=== PATIENT | male | born 1955 | race Caucasian/White ===

== ENCOUNTER 2017-07-31 00:14 | Inpatient (IN) | payer SELFPAY ==
[2017-07-31] MEDS ORDERED: Azithromycin 500 MG VIAL ONE (02:48)
[2017-07-31] MEDS ORDERED: methylPREDNISolone Sod Succ/PF 125 MG/2 ML VIAL ONE (02:48)
[2017-07-31] MEDS ORDERED: Lorazepam 2 MG/ML VIAL ONE (04:08)
[2017-07-31] MEDS ORDERED: Lorazepam 2 MG/ML VIAL SLOW IVP PRN (07:32)
[2017-07-31 07:56] VITALS: BMI 23.4
--- NOTE | 2017-07-31 08:05 | RAD ---
UPRIGHT PORTABLE CHEST 1 VIEW: HISTORY: A 61-year-old male with cough and dyspnea. History of COPD and emphysema. COMPARISON: 07/01/17. FINDINGS: Monitor leads overlie the chest. Bilateral hyperinflation and chronic changes with some biapical ple ural thickening. No confluent pneumonia, overt edema, or pleural effusion. IMPRESSION: Hyperinflation and chronic lung changes, stable. No acute process. POS: YOHANNSE
[2017-07-31] MEDS ORDERED: methylPREDNISolone Sod Succ/PF 125 MG/2 ML VIAL IVP SCH (09:00)
[2017-07-31] MEDS ORDERED: hydrALAZINE 20 MG/ML VIAL SLOW IVP PRN (12:32)
[2017-07-31] MEDS ORDERED: Ondansetron HCl/PF 4 MG/2 ML Vial IVP PRN (12:32)
[2017-07-31] MEDS ORDERED: Ondansetron ODT 4 MG TAB PO PRN (12:32)
[2017-07-31] MEDS ORDERED: Acetaminophen 500 MG TAB PO PRN (12:32)
[2017-07-31] MEDS ORDERED: cloNIDine 0.1 MG TAB PO PRN (12:32)
[2017-07-31] MEDS: Lorazepam 2 MG/ML VIAL SLOW IVP SCH ×3 (13:20→21:00)
[2017-07-31] MEDS: Nicotine 21 MG PATCH TD SCH (13:20)
[2017-07-31] MEDS: Sodium Chloride 0.9% 1,000 ML IV SCH (13:20)
--- NOTE | 2017-07-31 13:28 | HP ---
DATE OF ADMISSION: 07/31/2017 PRIMARY CARE PROVIDER: Isael Dumont. CHIEF COMPLAINT: Alcohol abuse. HISTORY OF PRESENT ILLNESS: This is a 61-year-old male who presented to [facility] with acute alcohol intoxication. The patient was transferred from [facility] ency Department after EMS personnel arrived to find patient at his home apparently with increased anx iety, acute alcohol intoxication and questionable suicidal ideation. Patient had reportedly spoken t o the EMS dispatcher regarding a loaded weapon in his house. Apparently, patient was found with a lo aded hand gun when EMS arrived to his home. The patient admits to a recent breakup after a 7-year re lationship causing increased anxiety and depression. The patient states he began drinking within the last 24 hours and had a fifth of rum completed by the time he arrived to the emergency room. The namita joan admits to a longstanding history of alcohol abuse, treated in a facility in [place] in 2016. The patient states he was treated for approximately 28 days, released back home and subsequently went josé miguel k to drinking alcohol. The patient admits to difficulty with anxiety over many years, self treating with heavy alcohol use. The patient admits to some tremulousness and falling and striking his head i n the last several weeks, but is unsure if he has ever had alcohol withdrawal seizure. The patient d enies any chronic medication use or exposure history. Patient denies specific fever, chills, blood i n the stool or vomiting. In the emergency room, the patient underwent general evaluation with an ini tial alcohol level noted at 387 on 07/30/2017. The patient was initiated on Ativan, DuoNebs, Zithrom ax, Solu-Medrol, Rocephin and intravenous normal saline. Initial concern was for additional COPD exa cerbation; however, patient denies any specific increased shortness of breath currently. PAST MEDICAL HISTORY: 1. Alcohol abuse. 2. Chronic alcoholism. 3. Tobacco abuse. 4. Anxiety disorder, untreated. 5. Question of chronic obstructive pulmonary disease without treatment. PAST SURGICAL HISTORY: Status post right inguinal hernia repair x2. CURRENT MEDICATIONS: Multivitamin. FAMILY HISTORY: Positive for multiple family members with anxiety. SOCIAL HISTORY: The patient resides in [facility]. The patient drinks alcohol up to 10 drin ks per day including a pint of whiskey. Smokes up to a pack and a half of cigarettes daily. Formerl y used cocaine and marijuana, none currently. ALLERGIES: Augmentin. REVIEW OF SYSTEMS: The following complete review of systems was negative, unless otherwise mentioned in the HPI or below: Constitutional: Weight loss or gain, ability to conduct usual activities. Sk in: Rash, itching. Eyes: Double vision, pain. ENT/Mouth: Nose bleeding, neck stiffness, pain, te nderness. Cardiovascular: Palpitations, dyspnea on exertion, orthopnea. Respiratory: Shortness of breath, wheezing, cough, hemoptysis, fever or night sweats. Gastrointestinal: Poor appetite, abdom inal pain, heartburn, nausea, vomiting, constipation, or diarrhea. Genitourinary: Urgency, frequenc y, dysuria, nocturia. Musculoskeletal: Pain, swelling. Neurologic/Psychiatric: Anxiety, depressio n. Allergy/Immunologic: Skin rash, bleeding tendency. Otherwise negative except as stated per HPI. PHYSICAL EXAMINATION: VITAL SIGNS: Currently, blood pressure 131/69, pulse 60, respiratory rate 18, temperature 98.8 degre es Fahrenheit, O2 saturation 94% on room air. GENERAL APPEARANCE: This is a 61-year-old male, anxious appearing, alert, responsive, in m ild distress. HEENT: Pupils are equal, round, and reactive to light and accommodation. Extraocular muscles are in tact. No scleral icterus, no conjunctival injection. Nares patent. OP is clear. Teeth in fair rep air. NECK: Supple, no cervical adenopathy, no thyromegaly, no carotid bruits, no JVD appreciated. Cervic al spine with full active and passive range of motion. No meningeal signs appreciated. CHEST: Diminished breath sounds in the bases bilaterally. Occasional coarse breath sounds noted. CARDIOVASCULAR: S1, S2, without noted murmur. ABDOMEN: Flat, soft, nontender, nondistended. Bowel sounds are positive in all four quadrants. The re is no hepatosplenomegaly, no abdominal bruits, no rebound or guarding appreciated. No palpable ma ss. EXTREMITIES: Warm and dry with fair turgor. No asymmetric edema appreciated. Pulses palpable dista lly at the dorsalis pedis, posterior tibial, and popliteal arteries bilaterally. Capillary refill le ss than 2 seconds. NEUROLOGIC: Positive intention tremor. Cranial nerves II-XII are grossly intact. Alert and oriente d x3. No other focal or lateralizing signs appreciated. PERTINENT LABORATORY DATA AND X-RAY FINDINGS: Sodium 141, potassium 4.2, chloride 100, CO2 of 20, BU N 15, creatinine 0.93, estimated GFR of 82, glucose 107, calcium 9.1, magnesium 2.0, AST 155, ALT 112 , total bilirubin 0.7, alkaline phosphatase 104. Total CK of 302, albumin 4.8, lipase 44, TSH 1.03. CBC showed a white blood cell count of 6.1, hemoglobin 15.6, hematocrit 45.2, MCV 103, platelet count 90 with 52% neutrophils. Urine drug screen dated 07/30/2017 positive for benzodiazepines and cannab inoids. Plasma alcohol level 387 on 07/30/2017. Portable chest x-ray dated 07/31/2017 showed hyperi nflation and chronic changes consistent with tobacco use. EKG dated 07/31/2017 by my interpretation shows sinus mechanism with heart rates in the 80s. Attenuated R waves noted in the precordial leads. Normal axis. No acute ST-T wave changes appreciated. ASSESSMENT AND PLAN: 1. Acute alcohol intoxication. We will admit to the telemetry unit. Continue Ativan 2 mg IV q.4 h scheduled. Continue alcohol withdrawal precautions. Banana bag at 125 mL per hour q.24 hours. We w ill consult [facility] and case management for alcohol cessation programs after discharge. 2. Question of suicidal ideation. No current plans for suicidal or homicidal ideation currently. T he patient with heightened anxiety and alcohol abuse as stated previously. We will consult [facility] when medically stabilized. A sitter for one-on-one observation. 3. Transaminitis secondary to alcohol abuse. Repeat LFTs in the a.m. No current evidence of obstru ctive process. 4. Thrombocytopenia secondary to chronic alcoholism. No evidence to suggest acute blood loss. Repe at platelet count in the a.m. 5. Tobacco abuse. Nicotine patch 21 mg daily. 6. Cannabis abuse. Continue supportive measures. 7. Prophylaxis. Sequential compression devices while in bed. Pepcid 20 mg p.o. b.i.d. MR consul t when medically stabilized. 8. CODE STATUS IS FULL. Surrogate medical decision maker is patient's brother.
[2017-07-31] MEDS: Multivitamins, Adult 10 ML, Folic Acid 1 MG, Thiamine HCl 100 MG in Dextrose 5 %-0.45 %... IV SCH ×4 (16:45)
[2017-07-31] MEDS: Famotidine 20 MG TAB PO SCH (21:54)
[2017-08-01] MEDS: Lorazepam 2 MG/ML VIAL SLOW IVP SCH ×6 (00:48→20:17)
[2017-08-01] MEDS: Sodium Chloride 0.9% 1,000 ML IV SCH ×4 (00:59→21:55)
[2017-08-01 05:48] LABS: Band 1 % (5-11); Hematocrit 35.7 % (42.0-52.0); Mean Platelet Volume 8.6 fL (7.4-10.4); Neutrophil 60 % (42-75); Reactive Lymphocytes 1 % (0-10); Red Blood Cell (RBC) Count 3.32 mill/uL (4.70-6.10)
[2017-08-01 06:04] LABS: ALT (SGPT) 83 U/L (8-55); AST (SGOT) 94 U/L (5-34); Alkaline Phosphatase 71 U/L (40-150); Anion Gap 12 mmol/L (10-20); BUN (Urea Nitrogen) 12 mg/dL (8.4-25.7); Bilirubin, Total 1.3 mg/dL (0.2-1.2); Calc. Creatinine Clearance 100 mL/min (70-130); Calcium 9.5 mg/dL (7.8-10.44); Carbon Dioxide 24 mmol/L (23-31); Chloride 103 mmol/L (98-107); Estimated GFR-MDRD Greater than 90; Globulin 2.8 g/dL (2.4-3.5); Protein, Total 6.8 g/dL (5.8-8.1)
[2017-08-01] MEDS: Famotidine 20 MG TAB PO SCH ×2 (08:10→20:17)
[2017-08-01] MEDS: Nicotine 21 MG PATCH TD SCH (13:45)
[2017-08-01] MEDS: Multivitamins, Adult 10 ML, Folic Acid 1 MG, Thiamine HCl 100 MG in Dextrose 5 %-0.45 %... IV SCH ×4 (13:45)
--- NOTE | 2017-08-01 13:58 | PDOC.PN ---
- Subjective Encounter Start Date: 08/01/17 Encounter Start Time: 13:50 Subjective: Feeling better overall. No withdrawal seizures. Appetite good. Wants to -: smoke. - Objective Resuscitation Status: Resuscitation Status FULL:Full Resuscitation MAR Reviewed: Yes Vital Signs & Weight: Vital Signs (12 hours) Temp Pulse Resp BP BP Pulse Ox 08/01/17 12:00 97.5 F L 61 16 116/56 L 116/56 L 96 08/01/17 08:00 97.7 F 76 18 97 08/01/17 07:33 97.7 F 76 18 124/75 124/75 97 08/01/17 04:00 97.6 F 54 L 20 116/60 97 Weight Weight 154 lb I&O: 07/31/17 08/01/17 08/02/17 06:59 06:59 06:59 Intake Total 1720 Output Total 450 Balance 1270 Result Diagrams: 08/01/17 05:05 08/01/17 05:05 Additional Labs: Laboratory Tests 07/30/17 07/30/17 08/01/17 17:45 17:45 05:05 Hgb 15.6 Plt Count 90 L AST 155 H 94 H ALT 112 H 83 H EKG Reviewed by me: Yes (Tele - Sinus jasvir) Phys Exam - Physical Examination Constitutional: NAD HEENT: PERRLA, oral pharynx no lesions Neck: no JVD, supple Respiratory: no wheezing, clear to auscultation bilateral Cardiovascular: RRR Gastrointestinal: soft, non-tender, no distention, positive bowel sounds Musculoskeletal: no edema, pulses present Neurological: normal sensation, moves all 4 limbs Psychiatric: A&O x 3 Skin: normal turgor, cap refill <2 seconds Dx/Plan (1) Acute alcohol intoxication Code(s): F10.929 - ALCOHOL USE, UNSPECIFIED WITH INTOXICATION, UNSPECIFIED Status: Acute Comment: Continue Ativan 2mg IV q4h prn, Banana bag daily (2) Suicidal ideation Code(s): R45.851 - SUICIDAL IDEATIONS Status: Acute Comment: Consult [facility] for detox/rehab options, sitter 1:1 (3) Transaminitis Code(s): R74.0 - NONSPEC ELEV OF LEVELS OF TRANSAMNS & LACTIC ACID DEHYDRGNSE Status: Chronic Comment: Improved, chronic (4) Thrombocytopenia Code(s): D69.6 - THROMBOCYTOPENIA, UNSPECIFIED Status: Acute Comment: Watch general trend, likely ETOH-induced marrow suppression, no evidence of active bleeding. (5) Tobacco abuse Code(s): Z72.0 - TOBACCO USE Status: Chronic Comment: Nicotine patch - Plan plan discussed w/ family, social science teacher, out of bed/ambulate, DVT proph w/SCDs Stable overall -: Sitter for 1:1 -: [facility] consult for dispo options -: Continue Ativan and Banana bag -: AM lab: CMP, CBC * Spoke with pt's brother, Chato Sanabria, discussed severity of current situation and confirmed suicidal ideation which led to admit. Family in agreement * for pursuing detox/rehab options preferably in the [place] area. Consult [facility] for options and safety plan for d/c.
[2017-08-01 15:03] LABS: Anion Gap 16 mmol/L (-14-95); Critical Call POC Critical Value; Lactate 6.06 mmol/L (0.50-2.20); POC Est. GFR-MDRD-African-Amer Greater than 60; POC Estimated GFR-MDRD Greater than 60; T. Carbon Dioxide 20.7 mmol/L (1.0-85.0); pH (Venous) 7.443 (7.35-7.45); vO2 Saturation-calc 96.8 % (0.0-100.0)
[2017-08-02] MEDS: Lorazepam 2 MG/ML VIAL SLOW IVP SCH ×4 (02:39→13:22)
[2017-08-02] MEDS: Sodium Chloride 0.9% 1,000 ML IV SCH ×2 (04:56→13:21)
[2017-08-02 06:08] LABS: ALT (SGPT) 138 U/L (8-55); AST (SGOT) 157 U/L (5-34); Alkaline Phosphatase 69 U/L (40-150); Anion Gap 11 mmol/L (10-20); BUN (Urea Nitrogen) 15 mg/dL (8.4-25.7); Bilirubin, Total 1.3 mg/dL (0.2-1.2); Calc. Creatinine Clearance 100 mL/min (70-130); Calcium 9.1 mg/dL (7.8-10.44); Carbon Dioxide 24 mmol/L (23-31); Chloride 104 mmol/L (98-107); Estimated GFR-MDRD Greater than 90; Globulin 2.7 g/dL (2.4-3.5); Protein, Total 6.6 g/dL (5.8-8.1)
[2017-08-02 06:11] LABS: Band 3 % (5-11); Hematocrit 37.9 % (42.0-52.0); Mean Platelet Volume 9.1 fL (7.4-10.4); Neutrophil 49 % (42-75); Red Blood Cell (RBC) Count 3.51 mill/uL (4.70-6.10); White Blood Cell (WBC) Count 6.9 thou/uL (4.8-10.8)
[2017-08-02] MEDS: Famotidine 20 MG TAB PO SCH (10:32)
--- NOTE | 2017-08-02 12:56 | DIS ---
DATE OF ADMISSION: 07/31/2017 DATE OF DISCHARGE: 08/02/2017 DISCHARGE DIAGNOSES: 1. Acute alcohol intoxication, resolving. 2. Chronic alcoholism. 3. Polysubstance abuse with tobacco and THC. 4. Anxiety disorder. 5. Suicidal ideation. 6. Transaminitis secondary to alcohol abuse. 7. Thrombocytopenia secondary to alcohol abuse. 8. Chronic macrocytic anemia. CONSULTATIONS: [facility]. PERTINENT LABORATORY DATA AND X-RAY FINDINGS: AST ranged between 94-157, ALT ranged between 83-138, and total bilirubin 1.3. CBC showed hemoglobin ranging between 12.0-12.7, MCV 108. Urine drug scree n dated 07/30/2017 positive for benzodiazepines and cannabinoids. Plasma alcohol level 387. Portabl e chest x-ray dated 07/31/2017 showed no acute cardiopulmonary process. Hyperinflation and chronic c hanges noted. HOSPITAL COURSE: Patient was admitted to the telemetry unit after initially presenting with acute al cohol intoxication in conjunction with suicidal ideation. The patient was placed on one-to-one obser vation and given general alcohol treatment protocol including IV fluids, banana bag and scheduled Ati van. The patient exhibited no evidence of seizure activity and overall remained clinically stable. The patient was evaluated by the [facility] Service due to suicidal ideation and deemed an appropriate cand idate for acute inpatient psychiatric care. The patient has been approved and we will transfer to [facility] in [place], [place] on 08/02/2017. The patient will also need additional long -term treatment and support coordinated with family members after discharge from acute inpatient [facility]. Overall, patient is clinically stable, tolerating regular oral intake, ambulatory without ass istance or difficulty and ready for discharge on 08/02/2017. DISCHARGE MEDICATION: Multivitamin 1 tablet p.o. daily. FOLLOWUP: Patient will follow up at [facility] at [place], [place]. CONDITION ON DISCHARGE: Fair. ACTIVITY: Ad flavia. DIET: Heart healthy. CODE STATUS: FULL. DISPOSITION: Discharge to [facility] in [place], [place] on 08/02/2017.
[2017-08-02] MEDS: Multivitamins, Adult 10 ML, Folic Acid 1 MG, Thiamine HCl 100 MG in Dextrose 5 %-0.45 %... IV SCH ×4 (13:21)
[2017-08-02 16:08] VITALS: TEMP 97.1
[2017-08-02 21:20] VITALS: BP 130/78
== END 2017-08-02 16:09 | DRG 897 ==
LOC: ERS 00:14 → 2NO 03:40
PROVIDERS: ADMIT Internal Medicine; ATTEND Internal Medicine
DX: F10.129 Alcohol abuse with intoxication, unspecified (principal); R45.851 Suicidal ideations; D69.6 Thrombocytopenia, unspecified; Y90.8 Blood alcohol level of 240 mg/100 ml or more; F17.210 Nicotine dependence, cigarettes, uncomplicated; F12.10 Cannabis abuse, uncomplicated; F41.9 Anxiety disorder, unspecified; D53.9 Nutritional anemia, unspecified
CPT/HCPCS: 36415; 71010; 80053; 82330; 82803; 83605; 85007; 85027; 93005; 94640; 96361; 96365; 96366; 96375; A4216; J0456; J0696; J2060; J2405; J2930; J3411; J7042; J7620

== ENCOUNTER 2018-01-31 09:57 | Inpatient (IN) | payer SELFPAY ==
[2018-01-31] MEDS ORDERED: Lorazepam 2 MG/ML VIAL ONE (10:18)
--- NOTE | 2018-01-31 11:11 | RAD ---
CHEST 1 VIEW: Date: 01/31/18 HISTORY: Chest tube placement. Pneumothorax. Follow-up. COMPARISON: Earlier exam same date. FINDINGS: Cardiac silhouette magnified by projection. Pulmonary vasculature unremarkable. Mediastinum midline w ith aortic calcification. Right thoracostomy tube remains in place with minimal residual right apical pneumothorax. IMPRESSION: Small right apical pneumothorax and other findings are stable. POS: YOHANNES
--- NOTE | 2018-01-31 11:18 | CT ---
CT BRAIN WITHOUT CONTRAST: Date: 01/31/18 HISTORY: Altered mental status. FINDINGS: Comparison made with exam of 06/13/17. No evidence of acute infarct, hemorrhage, midline shift, or abnormal extra-axial fluid collections ar e seen. The bony calvarium is intact. There is fluid in the right maxillary sinus and a mucus retenti on cyst versus polyp in the left maxillary sinus. Ventricular size is stable and the basilar cisterns are patent. IMPRESSION: No CT evidence of acute intracranial process. POS: GABINO
[2018-01-31] MEDS ORDERED: Ondansetron HCl/PF 4 MG/2 ML Vial IVP PRN (11:38)
[2018-01-31] MEDS ORDERED: Dextrose 5% in Water 1,000 ML IV PRN (11:38)
[2018-01-31] MEDS ORDERED: Ondansetron ODT 4 MG TAB PO PRN (11:38)
[2018-01-31] MEDS ORDERED: Dextrose 50% Abboject 50 ML SYRINGE SLOW IVP PRN (11:38)
[2018-01-31] MEDS ORDERED: Sodium Chloride 0.9% 1,000 ML IV SCH (11:45)
[2018-01-31] MEDS ORDERED: Rib Fracture Protocol PO SCH (11:45)
[2018-01-31] MEDS ORDERED: Oxazepam 10 MG CAP PO SCH (12:00)
[2018-01-31] MEDS ORDERED: Cyclobenzaprine 10 MG TAB PO PRN (12:30)
--- NOTE | 2018-01-31 12:57 | HP ---
REQUESTING PHYSICIAN: Dr. Nascimento ATTENDING SURGEON: Dr. Joe Meza CONSULTATIONS: None. HISTORY OF PRESENT ILLNESS: The patient is a 62-year-old man who has a significant history of alcoho l abuse and intermittent withdrawal periods, who presented to the Emergency Department in [facility] after stopping drinking and reportedly falling down onto his right chest. The patient presented to the Emergency Department, underwent evaluation there and was noted to have a 20% right pneumothorax at which time a small diameter pleural catheter was placed in his right tube with a Heimlich valve. Followup chest x-ray showed that this had resolved the pneumothorax. The patient was transferred to our facility for continuation of care. Specifically, he was likely to need DT prophylaxis and observ ation of his pneumothorax, at which time we were asked to admit the patient. ALLERGIES: PENICILLINS. MEDICATIONS: Bactrim, Zoloft and trazodone. MEDICAL HISTORY: COPD, alcohol abuse, kidney stones. PAST SURGICAL HISTORY: Hernia repair x2. SOCIAL HISTORY: The patient reports that he drinks more than 10 drinks per day to include a pint of whiskey. He also smokes 2 packs of cigarettes per day. He reports that he formerly abused cocaine a nd marijuana. FAMILY HISTORY: Unknown. REVIEW OF SYSTEMS: Ten point review of systems negative unless otherwise stated. PHYSICAL EXAMINATION: VITAL SIGNS: Blood pressure 111/80, heart rate 72, respirations 17, oxygen saturation is 100% on adriana m air, temperature is 98.3. GENERAL: The patient is resting comfortably in the ER bed. He was actually sleeping when I went in to interview the patient. He would awaken with verbal stimuli and was able to follow some very simpl e commands, but was extremely drowsy from his 2 mg of Ativan he had received. HEENT: Normocephalic, atraumatic. Eyes are PERRLA. The patient had difficulty following my command s to check his extraocular motion. His ears are atraumatic without discharge. Nose atraumatic witho ut discharge. Oropharynx is clear with very poor dentition. NECK: Nontender. Trachea is midline. No JVD. CHEST: Clear to auscultation with moderate inspiratory and expiratory effort. HEART: Regular rate and rhythm. ABDOMEN: Soft, flat, nontender with active bowel sounds. Pelvis is stable. There is a right pleura l catheter with Heimlich valve noted on the right chest. EXTREMITIES: Neurovascularly intact x4. BACK: Atraumatic and nontender. LABORATORY DATA: White blood cell count 8.0, hemoglobin 12.6, hematocrit 35.9, platelets 65. Sodiu m 137, potassium 3.5, chloride 98, CO2 21, BUN 23, creatinine 1.15, glucose 112. LFTs: Total biliru bin 0.8, AST 190, ALT 184, alkaline phosphatase 93. Blood alcohol is less than 10. RADIOGRAPHIC REPORTS: CT of the brain without contrast shows no CT evidence of acute intracranial pr ocess. AP chest x-ray shows a small right apical pneumothorax. ASSESSMENT AND PLAN: 1. Status post ground level fall. 2. Right pneumothorax. 3. Alcohol withdrawal. 4. Acute pain secondary to trauma. PLAN: The plan will be to admit the patient to the surgical floor. IV hydration. Encourage nutriti on, DT prophylaxis to include Serax, folic acid and Thiamine. Repeat chest x-ray in the morning. Me chanical DVT prophylaxis and gastritis prophylaxis. The evaluation, examination, laboratory and radiographic findings were discussed with Dr. Meza in [facility] emergency department.
[2018-01-31 13:27] VITALS: BMI 21.2
[2018-01-31] MEDS: Ibuprofen 800 MG TAB PO SCH ×2 (14:10→22:17)
[2018-01-31] MEDS: Gabapentin 300 MG CAP PO SCH ×2 (16:44→22:17)
[2018-01-31] MEDS: Oxazepam 10 MG CAP PO SCH ×2 (16:44→22:18)
[2018-01-31] MEDS: Sodium Chloride 0.9% 1,000 ML IV SCH ×2 (16:44→22:36)
[2018-01-31] MEDS: traMADol HCl 50 MG TAB PO SCH (18:13)
[2018-01-31] MEDS: Acetaminophen 500 MG TAB PO SCH (18:13)
[2018-01-31] MEDS: Famotidine 20 MG TAB PO SCH (22:17)
[2018-01-31] MEDS: traZODone HCl 50 MG TAB PO SCH (22:17)
[2018-01-31] MEDS: Sulfameth/Trimethoprim DS 800-160mg TAB PO SCH (22:18)
[2018-02-01] MEDS: traMADol HCl 50 MG TAB PO SCH ×5 (00:44→23:56)
[2018-02-01] MEDS: Acetaminophen 500 MG TAB PO SCH ×5 (00:44→23:56)
[2018-02-01] MEDS: Oxazepam 10 MG CAP PO SCH ×4 (02:59→21:34)
[2018-02-01 05:14] LABS: Anion Gap 10 mmol/L (10-20); BUN (Urea Nitrogen) 16 mg/dL (8.4-25.7); Calc. Creatinine Clearance 82 mL/min (70-130); Calcium 8.2 mg/dL (7.8-10.44); Carbon Dioxide 21 mmol/L (23-31); Chloride 107 mmol/L (98-107); Estimated GFR-MDRD Greater than 90; Glucose 79 mg/dL (80-115); Sodium 135 mmol/L (136-145)
[2018-02-01] MEDS: Ibuprofen 800 MG TAB PO SCH ×3 (05:42→21:28)
[2018-02-01 06:06] LABS: #Basophils 0.1 thou/uL (0.0-0.2); #Eosinphils 0.1 thou/uL (0.0-0.7); #Lymphocytes 2.1 thou/uL (1.20-3.40); #Monocytes 0.6 thou/uL (0.11-0.59); #Neutrophils 1.9 thou/uL (1.40-6.50); %Basophils 1.9 % (0.0-1.0); %Eosinophils 2.8 % (0.0-10.0); %Lymphocytes 43.3 % (21.0-51.0); %Monocytes 11.8 % (0.0-10.0); %Neutrophils 40.2 % (42.0-75.0); Mean Corpuscular HGB CONC 34.2 g/dL (32.0-36.0); Mean Corpuscular Hemoglobin 34.1 pg (27.0-31.0); Mean Corpuscular Volume 99.7 fl (80.0-94.0); Mean Platelet Volume 8.5 fL (7.4-10.4); PLT Morphology Comment Appears Decreased; Platelet Count 51 thou/uL (130-400); RBC Distribution Width 13.2 % (11.5-14.5); Red Blood Cell (RBC) Count 2.94 mill/uL (4.70-6.10); White Blood Cell (WBC) Count 4.8 thou/uL (4.8-10.8)
--- NOTE | 2018-02-01 07:41 | RAD ---
CHEST 1 VIEW: HISTORY: Chest tube. Pneumothorax. Followup. COMPARISON: 01/31/18. FINDINGS: Cardiac silhouette is magnified by projection. Pulmonary vasculature unremarkable. Small caliber ri ght thoracostomy tube remains in place. Right apical pneumothorax is smaller than on the previous st udy, with minimal residual. Left lung well inflated. Mediastinum midline. IMPRESSION: Interval decrease in size of small right apical pneumothorax. Other findings are stable. POS: GABINO
[2018-02-01] MEDS: Sulfameth/Trimethoprim DS 800-160mg TAB PO SCH ×2 (08:58→21:28)
[2018-02-01] MEDS: Sodium Chloride 0.9% 1,000 ML IV SCH (08:58)
[2018-02-01] MEDS: Gabapentin 300 MG CAP PO SCH ×3 (08:58→21:28)
[2018-02-01] MEDS: Folic Acid 1 MG TAB PO SCH (08:59)
[2018-02-01] MEDS: Famotidine 20 MG TAB PO SCH ×2 (08:59→21:28)
[2018-02-01] MEDS: Ascorbic Acid 500 mg Chewable Tablet PO SCH (08:59)
[2018-02-01 10:42] LABS: Magnesium 1.5 mg/dL (1.6-2.6); Phosphorus 3.7 mg/dL (2.3-4.7)
[2018-02-01] MEDS ORDERED: Potassium Chloride 20 MEQ in Premix Bag 1 BAG IVPB SCH ×2 (11:00)
[2018-02-01] MEDS ORDERED: Magnesium 2 GM/NS 0.9% 50 ML 2 GM in Premix Bag 1 BAG IVPB SCH (11:00)
[2018-02-01] MEDS: Magnesium Sulfate 2 GM in Sodium Chloride 0.9% 100 ML IVPB SCH ×2 (11:17→13:51)
--- NOTE | 2018-02-01 11:55 | PRG ---
DATE OF SERVICE: 02/01/2018 ATTENDING PHYSICIAN: Dr. Meza. SUBJECTIVE: Mr. Sanabria is a 62-year-old man, who was admitted to the hospital one day ago, status pos t fall onto his right chest with subsequent pneumothorax. The pleural catheter with Heimlich valve w as placed. He has had no respiratory distress. OBJECTIVE: VITAL SIGNS: Temperature 97.4, pulse 75, respirations 18, O2 saturation 98% room air, blood pressure 109/60. GENERAL: Frail-appearing 62-year-old male sitting up in bed in no acute distress. HEENT: Atraumatic, normocephalic. PULMONARY: Bilateral breath sounds clear. No respiratory distress. Thoracic vent in place to right chest. CARDIOVASCULAR: Regular rate and rhythm. Heart sounds normal. ABDOMEN: Soft, nontender, nondistended. Bowel sounds normal. EXTREMITIES: Moves all extremities well. Cap refill brisk. Neurovascularly intact in all extremiti es. NEUROLOGIC: GCS 15. Awake, alert, oriented x3. LABORATORY DATA: WBC 4.8, RBC 2.94, hemoglobin 10.0, hematocrit 29.3, platelets 51. Chemistry: Sod ium 135, potassium 3.0, chloride 107, carbon dioxide 21, BUN 16, creatinine 0.77. RADIOGRAPHIC REPORT: Decrease in size of small right apical pneumothorax. ASSESSMENT: 1. Status post ground-level fall. 2. Right pneumothorax. 3. Alcohol withdrawal. 4. Acute pain secondary to trauma. PLAN: 1. Encourage incentive spirometry and pulmonary toilet. Repeat chest x-ray in a.m. 2. Continue to monitor for alcohol withdrawal. Thorax ordered. 3. Continue oral analgesia. The patient was reviewed with Dr. Meza, attending surgeon.
[2018-02-01] MEDS: traZODone HCl 50 MG TAB PO SCH (21:29)
[2018-02-02] MEDS: Oxazepam 10 MG CAP PO SCH ×2 (03:03→08:57)
[2018-02-02 05:19] LABS: Anion Gap 9 mmol/L (10-20); BUN (Urea Nitrogen) 14 mg/dL (8.4-25.7); Calc. Creatinine Clearance 75 mL/min (70-130); Calcium 8.1 mg/dL (7.8-10.44); Carbon Dioxide 21 mmol/L (23-31); Chloride 110 mmol/L (98-107); Estimated GFR-MDRD Greater than 90; Glucose 78 mg/dL (80-115); Magnesium 2.1 mg/dL (1.6-2.6); Phosphorus 3.7 mg/dL (2.3-4.7); Potassium 3.5 mmol/L (3.5-5.1); Sodium 136 mmol/L (136-145)
[2018-02-02] MEDS: Acetaminophen 500 MG TAB PO SCH (05:29)
[2018-02-02] MEDS: Ibuprofen 800 MG TAB PO SCH (05:30)
[2018-02-02] MEDS: traMADol HCl 50 MG TAB PO SCH (05:30)
[2018-02-02] MEDS: Sodium Chloride 0.9% 1,000 ML IV SCH ×2 (06:47→08:57)
--- NOTE | 2018-02-02 07:50 | RAD ---
CHEST 1 VIEW: HISTORY: Chest tube. Pneumothorax. Followup. COMPARISON: 02/01/18. FINDINGS: Cardiac silhouette magnified by projection. Lungs well inflated. Tiny right apical pneumothorax unc hanged. Right thoracostomy tube remains in good position. Reticular interstitial prominence through out each lung has increased slightly. IMPRESSION: Stable tiny right apical pneumothorax. POS: [facility]
[2018-02-02] MEDS: Gabapentin 300 MG CAP PO SCH (08:57)
[2018-02-02] MEDS: Folic Acid 1 MG TAB PO SCH (08:58)
[2018-02-02] MEDS: Sulfameth/Trimethoprim DS 800-160mg TAB PO SCH (08:58)
[2018-02-02] MEDS: Ascorbic Acid 500 mg Chewable Tablet PO SCH (08:58)
[2018-02-02] MEDS: Famotidine 20 MG TAB PO SCH (08:58)
--- NOTE | 2018-02-02 15:07 | RAD ---
CHEST 1 VIE: HISTORY: Pneumothorax. Followup. COMPARISON: Earlier exam on the same date. FINDINGS: Cardiac silhouette and pulmonary vasculature are unremarkable. Right thoracostomy tube has been alek chantale. Right pneumothorax is not visible on the current exam. No new abnormalities are apparent. POS: [facility]
[2018-02-02 16:05] VITALS: BP 117/75; TEMP 98.4
--- NOTE | 2018-02-03 02:07 | DIS ---
DATE OF ADMISSION: 01/31/2018 DATE OF DISCHARGE: 02/02/2018 ADMISSION DIAGNOSES: 1. Status post ground level fall. 2. Small right pneumothorax treated with pleural catheter. 3. Acute alcohol withdrawal. 4. Acute pain secondary to trauma. CONSULTATIONS: None. PROCEDURES: None. SUMMARY: The patient is a 62-year-old man with significant alcohol abuse history who reportedly fell down possibly as long as 2 days ago, patient presented to the emergency department in [place], where he underwent evaluation and examination and was noted to have a small right pneumothorax. At [facility] time, the ER physician placed a pleural cath with a Heimlich valve and had the patient transferr ed to our facility. Primarily, he was concerned about the patient having delirium tremens due to his abrupt alcohol withdrawal. Upon arrival, the patient was noted to have a minor tremor, but reanna hood was alert, oriented and his Lyme coma scale was 15. No time during his stay that he appears enc ephalopathic. The patient's chest x-ray revealed that his pneumothorax had resolved. He had his Por t-A-Cath discontinued and a follow up x-ray showed still resolved. The patient will follow up with t rauma clinic in 7-10 days or sooner as needed. He was given strict return precautions, also discusse d with him and whose friend was his alcohol abuse, tobacco use, and his poor dietary intake. The pat chapin was also offered information on alcohol rehabilitation, Alcoholics Anonymous, and the likes. e patient states that he has went through these programs and he has information at home and declined any new information.
== END 2018-02-02 17:00 | disposition home or self-care (01) | DRG 200 ==
LOC: ERS 09:57 → SURG A 11:32
PROVIDERS: ADMIT Surgery; ATTEND Surgery
DX: S27.0XXA Traumatic pneumothorax, initial encounter (principal); F10.239 Alcohol dependence with withdrawal, unspecified; G89.11 Acute pain due to trauma; F17.210 Nicotine dependence, cigarettes, uncomplicated; J44.9 Chronic obstructive pulmonary disease, unspecified; Z88.0 Allergy status to penicillin; Z88.1 Allergy status to other antibiotic agents; W18.30XA Fall on same level, unspecified, initial encounter
CPT/HCPCS: 36415; 70450; 71045; 80048; 82140; 83690; 83735; 84100; 85025; 93005; 94640; 96374; G8978-GP-CJ; G8979-GP-CJ; G8980-GP-CJ; J2060; J3475; J3480; J7050; J7620